=== PATIENT | female | born 1990 | race Hispanic/Latino ===

== ENCOUNTER 2023-08-25 15:51 | Emergency (ER) | payer OTHER ==
[~2023-08-25] VITALS: Ht 157.5 cm; Wt 73.0 kg
[2023-08-25 16:38] LABS: APPEARANCE,URINE CLEAR (CLEAR); BILIRUBIN,URINE NEGATIVE (NEGATIVE); COLOR,URINE YELLOW (YELLOW); GLUCOSE, URINE (UA) NEGATIVE (NEGATIVE); KETONES,URINE 20 mg/dL (NEGATIVE); LEUKOCYTE ESTERASE ,URINE 75 Leu/uL (NEGATIVE); NITRATE,URINE NEGATIVE (NEGATIVE); OCCULT BLOOD,URINE SMALL (NEGATIVE); PH,URINE 6.5 (5.0-8.0); PROTEIN,URINE NEGATIVE (NEGATIVE); UROBILINOGEN,URINE 0.2 mg/dL (0.2-1.0)
[2023-08-25 16:41] LABS: ADD UA MICROSCOPIC YES
[2023-08-25 16:46] LABS: BACTERIA,URINE RARE /HPF (None Seen); MUCUS,URINE RARE LPF (None Seen); RBC,URINE 0-1 /HPF (0-1); SQUAMOUS EPITHELIAL CELL,UR FEW /HPF (0-2); YEAST,URINE BUDDING RARE /HPF (None Seen)
[2023-08-25] MEDS: CEFTRIAXONE 1G VIAL IM ONE (17:55)
[2023-08-25] MEDS: KETOROLAC 15MG/ML VIAL (15MG/ML) IM ONE (18:01)
[2023-08-25] MEDS: LIDOCAINE HCL 1% 20 ML VIAL ONE (18:10)
[2023-08-25 18:30] LABS: COVID19 (SARS ANTIGEN RAPID) PRESUMPTIVE NEGATIVE (NEGATIVE); INFLUENZA TYPE A Negative For Type A (NEGATIVE); INFLUENZA TYPE B Negative For Type B (NEGATIVE)
[2023-08-25] MEDS: 0.9%NACL 1000ML 1,000 ML IV STA (19:17)
[2023-08-25] MEDS: METOCLOPRAMIDE 10 MG/2 ML VIAL IVP STA (19:17)
[2023-08-25 19:31] LABS: BASOPHILS # (AUTO) 0.02 K/uL (0.00-0.20); BASOPHILS % (AUTO) 0.1 % (0.0-5.0); EOSINOPHILS # (AUTO) 0.01 K/uL (0.00-0.70); EOSINOPHILS % (AUTO) 0.1 % (0.0-8.0); HEMATOCRIT 36.9 % (36-48); IMMATURE GRANULOCYTE ABSOLUTE 0.06 K/uL (0-1); LYMPHOCYTES # (AUTO) 1.6 K/uL (1.0-4.8); LYMPHOCYTES % (AUTO) 11.6 % (21.0-51.0); MEAN CORPUSCULAR VOLUME 85.8 fL (79-99); MONOCYTES # (AUTO) 0.5 K/uL (0.1-1.0); MONOCYTES % (AUTO) 3.9 % (3.0-13.0); NEUTROPHILS # (AUTO) 11.3 K/uL (1.8-7.7); NEUTROPHILS % (AUTO) 83.9 % (40.0-77.0); PLATELET COUNT (AUTO) 237 K/uL (130-400); RED CELL DISTRIBUTION WIDTH 12.5 % (11.0-15.5); WHITE BLOOD COUNT (AUTO) 13.5 K/uL (4.8-10.8)
[2023-08-25 19:39] LABS: CREATININE 0.5 mg/dL (0.5-1.0)
[2023-08-25 20:00] VITALS: BP 105/65; PULSE 90; RESP 18; O2SAT 96
[2023-08-25] MEDS ORDERED: FIORIT PO (20:02)
[2023-08-25] MEDS: POTASSIUM BICARB/CIT AC 25 MEQ TABLET.EFF PO STA (20:02)
== END 2023-08-25 20:17 | disposition home or self-care (01) ==
LOC: EDH 15:51
DX: E87.1 Hypo-osmolality and hyponatremia (principal); E87.6 Hypokalemia; R51.9 Headache, unspecified; Z20.822 Contact with and (suspected) exposure to COVID-19
CPT/HCPCS: 99284; 96374; 87426; 80048; 85025; 87088; 87804 ×2; 81001; 36415; 96372 ×2; J7030; J0696; J2765; J1885